=== PATIENT | female | born 1945 | race Caucasian/White ===

== ENCOUNTER 2023-09-14 14:40 | Outpatient (CLI) | payer MEDICARE, OTHER | END 2023-09-14 14:41 | disposition home or self-care (01) | LOC: CSHMAMMO 14:40 | PROVIDERS: ATTEND Internal Medicine | DX: Z12.31 Encounter for screening mammogram for malignant neoplasm of breast (principal); N63.10 Unspecified lump in the right breast, unspecified quadrant | CPT/HCPCS: 77063; 77067 ==

== ENCOUNTER 2023-09-22 07:50 | Outpatient (CLI) | payer MEDICARE, OTHER | END 2023-09-22 07:51 | disposition home or self-care (01) | LOC: CSHULT 07:50 | PROVIDERS: ATTEND Internal Medicine | DX: N63.10 Unspecified lump in the right breast, unspecified quadrant (principal) ==

== ENCOUNTER → 2023-09-25 | Day surgery (SDC) | payer MEDICARE, OTHER | LOC: CSHULT 12:41 | PROVIDERS: ATTEND Internal Medicine | PROC: 0H95XZX Drainage of Chest Skin, External Approach, Diagnostic (ICD-10-PCS; principal; 2023-09-25) | DX: N60.21 Fibroadenosis of right breast (principal); N63.11 Unspecified lump in the right breast, upper outer quadrant; N64.1 Fat necrosis of breast | CPT/HCPCS: 19083; 88305; 88342 ==

== ENCOUNTER 2024-12-08 13:51 | Outpatient (CLI) | payer MEDICARE, OTHER | END 2024-12-08 13:52 | disposition home or self-care (01) | LOC: CSHMAMMO 13:51 | PROVIDERS: ATTEND Internal Medicine | DX: Z12.31 Encounter for screening mammogram for malignant neoplasm of breast (principal) | CPT/HCPCS: 77063; 77067 ==